=== PATIENT | female | born 2000 | race Two or more races ===

== ENCOUNTER 2019-07-04 15:45 | Emergency (ER) | payer OTHER ==
--- NOTE | 2019-07-04 19:07 | ED ---
Head Injury - HPI Summary HPI Summary: 18 year old female presents head injury a week ago. She said she ended up falling and hitting her head. no LOC. She admits to nausea but no vomiting. States yesterday she had numbness on her face. She also was speaking gibberish. States that has resolved. Does have a history of migraines. This has never before with her migraines. She admits to dizziness. No neck pain. No other injury. [facility] well as concussion symptoms are not improving. She has been sleeping through class. - History Of Current Complaint Chief Complaint: EDHeadInjury Stated Complaint: HEAD INJURY PER PT Time Seen by Provider: 07/04/19 18:46 Pain Intensity: 6 - Allergies/Home Medications Allergies/Adverse Reactions: Allergies Allergy/AdvReac Type Severity Reaction Status Date / Time cat dander Allergy Eyes Verified 07/04/19 15:57 Itchy/Swollen/Red/Watery PMH/Surg Hx/FS Hx/Imm Hx Endocrine/Hematology History: Denies: Hx Anticoagulant Therapy Respiratory History: Denies: Hx Asthma Neurological History: Reports: Hx Migraine Infectious Disease History: No Infectious Disease History: Denies: Traveled Outside the [place] in Last 30 Days - Family History Known Family History: Positive: Hypertension - Social History Alcohol Use: None Substance Use Type: Reports: None Smoking Status (MU): Never Smoked Tobacco Review of Systems Negative: Fever Negative: Chest Pain Negative: Shortness Of Breath Positive: Nausea Neurological: Other - dizziness Positive: Headache All Other Systems Reviewed And Are Negative: Yes Physical Exam Triage Information Reviewed: Yes Vital Signs On Initial Exam: Initial Vitals Temp Pulse Resp BP Pulse Ox 97.6 F 90 16 128/101 98 07/04/19 15:48 07/04/19 15:48 07/04/19 15:48 07/04/19 15:48 07/04/19 15:48 Vital Signs Reviewed: Yes Appearance: Positive: Well-Appearing Skin: Positive: Warm, Dry Head/Face: Positive: Normal Head/Face Inspection Eyes: Positive: Normal, EOMI, SHAUN, Conjunctiva Clear ENT: Positive: Normal ENT inspection, Pharynx normal, TMs normal Neck: Positive: Other: - nontender neck Respiratory/Lung Sounds: Positive: Clear to Auscultation, Breath Sounds Present Cardiovascular: Positive: Normal, RRR Musculoskeletal: Positive: Normal Neurological: Positive: Sensory/Motor Intact, Alert, Oriented to Person Place, Time, CN Intact II-III Psychiatric: Positive: Normal - Crenshaw Coma Scale Best Eye Response: 4 - Spontaneous Best Motor Response: 6 - Obeys Commands Best Verbal Response: 5 - Oriented Coma Scale Total: 15 Procedures - Sedation Patient Received Moderate/Deep Sedation with Procedure: No Diagnostics - Vital Signs Vital Signs Temp Pulse Resp BP Pulse Ox 07/04/19 15:48 97.6 F 90 16 128/101 98 - Laboratory Lab Statement: Any lab studies that have been ordered have been reviewed, and results considered in the medical decision making process. - CT brain CT Interpretation Completed By: Radiologist Summary of CT Findings: IMPRESSION: No traumatic intracranial abnormalities. Head Injury Course/Dx Course Of Treatment: 18 year old female presents head injury a week ago. She said she ended up falling and hitting her head. no LOC. She admits to nausea but no vomiting. States yesterday she had numbness on her face. She also was speaking gibberish. States that has resolved. Does have a history of migraines. This has never before with her migraines. She admits to dizziness. No neck pain. No other injury. [facility] with [facility] as well as concussion symptoms are not improving. She has been sleeping through class. On exam has normal neuro exam. With changing neuro symptoms will get a CT. CT brain shows no acute findings. symptoms are likely due to head injury with history of migraine. will have follow up with ic and neurology. patient understand and agrees with plan. - Diagnoses Differential Diagnosis/HQI/PQRI: Concussion Without LOC, Contusion, Intracranial Bleed Provider Diagnoses: Concussion Discharge ED - Sign-Out/Discharge Documenting (check all that apply): Patient Departure - Discharge Plan Condition: Good Disposition: HOME Patient Education Materials: Concussion (ED) Referrals: Ariane Dela Cruz MD [Medical Doctor] - Additional Instructions: Take Tylenol or ibuprofen for headache every 6 hours Modify activities as tolerated Follow up with [facility] within 5 days a referral was given for neurology Return to ED if develop any new or worsening symptoms - Billing Disposition and Condition Condition: GOOD Disposition: Home
[2019-07-04 20:49] VITALS: BP 112/72
== END 2019-07-04 20:48 | disposition home or self-care (01) ==
LOC: EDSEX → ED 15:45
DX: S06.0X9A Concussion with loss of consciousness of unspecified duration, initial encounter (principal); W19.XXXA Unspecified fall, initial encounter; Y92.9 Unspecified place or not applicable
CPT/HCPCS: 70450; 99282

== ENCOUNTER 2019-09-07 01:17 | Emergency (ER) | payer OTHER ==
--- NOTE | 2019-09-07 02:27 | ED ---
Abdominal Pain/Female - HPI Summary HPI Summary: The patient is a 18-year-old male presenting to [facility] accompanied by friends with a chief complaint of epigastric pain onset at 2200 last night. She reports that the cramping pain has continued to worsen since onset, and it is rated 9/ 10 in as she had to curl up in a ball due to the severity. She endorses nausea but denies any vomiting, diarrhea, or fever. Last meal was a quesadilla at 2044. She has never had this pain before. PMhx: back surgery, tonsillectomy. FHx : cardiac disease, diabetes. Nonsmoker, no EtOH, no substance use. Medications reviewed. Allergies noted. - History of Current Complaint Chief Complaint: EDAbdPain Stated Complaint: ABD PAIN , Time Seen by Provider: 09/07/19 02:06 Hx Obtained From: Patient Onset/Duration: Sudden Onset, Lasting Hours - 2200, Still Present Timing: Constant Severity Initially: Moderate Severity Currently: Severe Pain Intensity: 9 Pain Scale Used: 0-10 Numeric Location: Epigastric Radiates: No Character: Cramping Aggravating Factor(s): Nothing Alleviating Factor(s): Nothing Associated Signs and Symptoms: Positive: Nausea. Negative: Fever, Vomiting, Diarrhea Allergies/Adverse Reactions: Allergies Allergy/AdvReac Type Severity Reaction Status Date / Time cat dander Allergy Eyes Verified 09/07/19 01:24 Itchy/Swollen/Red/Watery Home Medications: Home Medications Buspar TAB * 09/07/19 [History] Testosterone 09/07/19 [History] PMH/Surg Hx/FS Hx/Imm Hx Endocrine/Hematology History: Denies: Hx Anticoagulant Therapy, Hx Diabetes Respiratory History: Denies: Hx Asthma Sensory History: Reports: Hx Contacts or Glasses Opthamlomology History: Reports: Hx Contacts or Glasses Neurological History: Reports: Hx Migraine - Surgical History Surgery Procedure, Year, and Place: back surgery, tonsillectomy Infectious Disease History: No Infectious Disease History: Denies: Traveled Outside the [place] in Last 30 Days - Family History Known Family History: Positive: Cardiac Disease, Hypertension, Diabetes - Social History Alcohol Use: None Hx Substance Use: No Substance Use Type: Reports: None Hx Tobacco Use: No Smoking Status (MU): Never Smoked Tobacco - Additional Comments History Additional Comments: back surgery, tonsillectomy Review of Systems - ROS Summary Review of Systems Summary: Home Medications Medication Instructions Recorded Confirmed Type Buspar TAB * 09/07/19 History Testosterone 09/07/19 History Negative: Fever Positive: Abdominal Pain - epigastric, Nausea. Negative: Vomiting, Diarrhea All Other Systems Reviewed And Are Negative: Yes Physical Exam - Summary Physical Exam Summary: General: Well-developed, Obese. Appears to be in mild discomfort. HEENT: Normocephalic, Atraumatic. Eyes: Conjuctiva normal, PERRL. Oropharynx: Clear, mucous membranes moist, (-) exudates. Neck: Soft, FROM, (-) lymphadenopathy, (-) thyromegaly, (-) JVD. Cardiovascular: Normal sinus rhythm, (-) murmur. Lungs: Clear to auscultation bilaterally (-) wheezes, (-) rales, (-) rhonchi. Abdomen: Soft, epigastric tenderness to palpation, non-distended, (-) organomegaly, normal bowel sounds. Back: (-) CVA tenderness Extremities: No edema. Skin: Warm, dry, (-) rash. Neuro: Alert and oriented x3, moves all extremities equally. No ataxia. No gait disturbance. No sensory deficit. Normal strength, normal sensation. Psychiatric: Mood normal, affect normal. Triage Information Reviewed: Yes Vital Signs On Initial Exam: Initial Vitals Temp Pulse Resp BP Pulse Ox 98.8 F 88 20 147/107 99 09/07/19 01:20 09/07/19 01:20 09/07/19 01:20 09/07/19 01:20 09/07/19 01:20 Vital Signs Reviewed: Yes Procedures - Sedation Patient Received Moderate/Deep Sedation with Procedure: No Diagnostics - Vital Signs Vital Signs Temp Pulse Resp BP Pulse Ox 09/07/19 01:20 98.8 F 88 20 147/107 99 - Laboratory Result Diagrams: 09/07/19 02:46 09/07/19 02:46 Lab Statement: Any lab studies that have been ordered have been reviewed, and results considered in the medical decision making process. - CT Abd/Pel CT CT Interpretation Completed By: Radiologist Summary of CT Findings: Impression: No acute findings. The gallbladder is not distended. No calcified gallstone. No abnormal gallbladder wall thickening. No ductal distention. The pancreas is not remarkable. No bowel obstruction. No abnormal mucosal thickening. The liver is of normal size and appearance. No focal hepatic lesion. Dr. Bentley has reviewed this report. Re-Evaluation - Re-Evaluation First Eval Re-Evaluation Time: 06:15 Change: Improved Comment: I have discussed results with the patient and pain has improved. Discussed symptoms that warrant immediate return to ED. Abdominal Pain Fem Course/Dx - Course Course Of Treatment: 18 year old female presents with epigastric pain since 2200. never had pain this bad before. no f/c, v/d. has nausea. did not try anything to alleivate symptoms. patient does not appear to be in significant distress. brought in by two friends that are in the room with him. he is given IV fluids, Protonix, Zofran, Reglan, and GI cocktail in the ED. pain somewhat better after each med but then returned. no blair's sign. mild epigastric tenderness. labs demonstrate normal wbc, normal hg, normal lfts. ct scan demonstrated no obvious abnormality. patient advised to start omeprazole daily. mylanta or maalox as needed. Follow up with PCP, follow up sooner for any worsening symptoms. - Diagnoses Provider Diagnoses: Epigastric pain Discharge ED - Sign-Out/Discharge Documenting (check all that apply): Patient Departure - Patient will be discharged home. - Discharge Plan Condition: Stable Disposition: HOME Prescriptions: Omeprazole CAP (NF) [Prilosec CAP* 20 MG] 20 mg PO DAILY #30 cap. Patient Education Materials: Epigastric Pain (ED) Referrals: [facility] [Primary Care Provider] - 3 Days Additional Instructions: Please take medication as prescribed. Please follow up with your primary care provider in 2-3 days. Return to the emergency department for any new or worsening symptoms. - Billing Disposition and Condition Condition: STABLE Disposition: Home - Attestation Statements Document Initiated by Vinicioibe: Yes Documenting Scribe: Jeniffer Monahan Provider For Whom Marquis is Documenting (Include Credential): Dr. Mary Bentley MD Scribe Attestation: Jeniffer Dunlap, glenned for Dr. Mary Bentley MD on 09/07/19 at 2027. Scribe Documentation Reviewed: Yes Provider Attestation: The documentation as recorded by the Jeniffer santos accurately reflects the service I personally performed and the decisions made by me, Dr. Mary Bentley MD Status of Scribe Document: Viewed
[2019-09-07] MEDS ORDERED: NS 0.9% 1000 ML** 1,000 ML IV ONE (02:28)
[2019-09-07] MEDS ORDERED: Pantoprazole IV* 40 MG IV ONE ×2 (02:28→04:51)
[2019-09-07] MEDS ORDERED: Ondansetron INJ* 2 MG/ML VIAL IV ONE ×2 (02:30→04:51)
[2019-09-07 02:54] LABS: ABS Basophils 0.1 10^3/ul (0-0.2); ABS Eosinophils 0.1 10^3/ul (0-0.6); ABS Monocytes 0.5 10^3/ul (0-0.8); ABS Neutrophils 7.5 10^3/ul (1.5-7.7); Eosinophil % 1.4 %; Hematocrit 44 % (35-47); Hemoglobin 15.2 g/dL (12.0-16.0); Lymphocyte % 19.5 %; Mean Corpuscular HGB Conc 35 g/dL (31-36); Mean Corpuscular Hemoglobin 29 pg (27-31); Mean Corpuscular Volume 84 fL (80-97); Platelet Count 347 10^3/uL (150-450); Red Blood Count 5.26 10^6 /uL (3.70-4.87); Red Cell Distribution Width 14 % (10-15); White Blood Count 10.2 10^3/uL (3.5-10.8)
[2019-09-07 03:10] LABS: INR 1.08 (0.82-1.09)
[2019-09-07 03:17] LABS: Albumin 4.3 g/dL (3.2-5.2); Albumin/Globulin Ratio 1.3 (1-3); BUN/Creatinine Ratio 10.5 (8-20); C Reactive Protein 8.82 mg/L (<8.01); Calcium 9.1 mg/dL (8.6-10.3); EGFR African American 118.6 (>60); Globulin 3.3 g/dL (2-4); Potassium 3.4 mmol/L (3.5-5.0); Total Bilirubin 0.3 mg/dL (0.2-1.0); Total Protein 7.6 g/dL (6.4-8.9)
[2019-09-07] MEDS ORDERED: Al Hydrox/Mg Hydrox/Simet LIQ* 30 ML UDC PO ONE (03:27)
[2019-09-07] MEDS ORDERED: Lidocaine 2% VISCOUS* 15 ML UDC PO ONE (03:27)
[2019-09-07] MEDS ORDERED: Iohexol 300* (CONTRAST) 10 ML SDV IV ONE (04:13)
[2019-09-07] MEDS ORDERED: Metoclopramide IV* 5 MG/ML 2 ML VIAL IV ONE (04:21)
[2019-09-07 06:22] VITALS: BP 151/85
== END 2019-09-07 06:22 | disposition home or self-care (01) ==
LOC: ED 01:17
DX: R10.13 Epigastric pain (principal)
CPT/HCPCS: 36415; 74177; 80053; 82150; 83605; 83690; 85025; 85610; 86140; 96361; 96374; 96375; 96376; 99284; A9270-GY; J2405; J2765